=== PATIENT | female | born 1990 | race Caucasian/White ===

== ENCOUNTER 2024-09-14 09:12 | Outpatient (CLI) | payer OTHER | END 2024-09-14 09:20 | disposition home or self-care (01) | LOC: TOM 09:12 | PROVIDERS: ATTEND Obstetrics & Gynecology Reproductive Endocrinology | DX: E28.9 Ovarian dysfunction, unspecified (principal) ==

== ENCOUNTER 2025-06-18 16:27 | Outpatient (CLI) | payer OTHER ==
[~2025-06-18] VITALS: Ht 152.4 cm; Wt 86.2 kg
[2025-06-18 16:56] VITALS: BP 99/64
[2025-06-18] MEDS ORDERED: PRENATA CHEWAB1 EACH PO (17:13)
[2025-06-18 17:36] LABS: BASO % 0.1 % (0.1-1.2); EOS # 0.13 (0.04-0.54); EOS % 1.4 % (0.7-7.0); LYMPH # 1.56 (1.18-3.74); LYMPH % 17.1 % (19.3-53.1); MEAN PLATELET VOLUME 11.90 fl (9.4-12.4); MONO # 0.57 (0.24-0.82); MONO % 6.2 % (4.7-12.5); NEUT # 6.82 (1.56-6.13); NEUT % 74.8 % (34.0-71.1); RED CELL DISTRIBUTION WIDTH 13.0 % (11.6-14.4)
[2025-06-18 17:50] LABS: INR < 0.93
[2025-06-18 17:55] LABS: ALT/SGPT 61.0 U/L (12-78); AST/SGOT 39.0 U/L (15-37); BILIRUBIN TOTAL 0.6 mg/dL (0.3-1.2); BUN CREA RATIO 20.0 (7.0-25.0); CREATININE SERUM 0.51 mg/dL (0.55-1.02); GFR 138.04; GLOBULINA 3.6 G/DL (2.4-3.5); GLUCOSE FASTING 75.0 mg/dL (65-100); OSMOLALITY SERUM 275.0 MOSM/KG (275-295)
[2025-06-18] MEDS ORDERED: RINGERS SOLUTION,LACTATED 1,000 ML IV SCH (18:00)
[2025-06-18 19:27] VITALS: BP 91/57
[2025-06-18] MEDS ORDERED: PNV,CALCIUM 72/IRON/FOLIC ACID 1 TAB TABLET PO SCH (21:00)
[2025-06-18 23:11] VITALS: BP 96/58
[2025-06-19 03:38] VITALS: BP 95/58
[2025-06-19] MEDS ORDERED: LEVOTHYROXINE SODIUM 125 MCG TABLET PO SCH (06:00)
[2025-06-19 06:08] VITALS: BP 90/50; O2SAT 98
[2025-06-19] MEDS ORDERED: PNV,CALCIUM 72/IRON/FOLIC ACID 1 TAB TABLET PO SCH (09:00)
[2025-06-19 12:44] VITALS: BP 100/60
== END 2025-06-19 12:49 | disposition home or self-care (01) ==
LOC: OBS/DEL 16:27
PROVIDERS: ATTEND Obstetrics & Gynecology Gynecology
DX: O26.893 Other specified pregnancy related conditions, third trimester (principal); O26.843 Uterine size-date discrepancy, third trimester; O36.8130 Decreased fetal movements, third trimester, not applicable or unspecified; O36.5930 Maternal care for other known or suspected poor fetal growth, third trimester, not applicable or unspecified; Z3A.36 36 weeks gestation of pregnancy

== ENCOUNTER 2025-06-26 13:00 | Inpatient (IN) | payer OTHER ==
[~2025-06-26] VITALS: Ht 152.4 cm; Wt 86.2 kg
[~2025-06-26 13:00] MED LIST: PRENATA CHEWAB1 EACH PO
[2025-06-26 15:30] VITALS: BP 101/58
[2025-06-26] MEDS ORDERED: MISOPROSTOL 25 MCG TABLET VAG PRN (15:45)
[2025-06-26 15:56] LABS: BASO % 0.1 % (0.1-1.2); EOS # 0.12 (0.04-0.54); EOS % 1.4 % (0.7-7.0); LYMPH # 1.53 (1.18-3.74); LYMPH % 18.0 % (19.3-53.1); MEAN PLATELET VOLUME 12.20 fl (9.4-12.4); MONO # 0.57 (0.24-0.82); MONO % 6.7 % (4.7-12.5); NEUT # 6.21 (1.56-6.13); NEUT % 73.2 % (34.0-71.1); RED CELL DISTRIBUTION WIDTH 13.0 % (11.6-14.4); URINE APPEARANCE Cloudy; URINE BILIRRUBIN Negative (NEGATIVE); URINE BLOOD Negative; URINE COLOR Yellow; URINE GLUCOSE Negative (NEGATIVE); URINE KETONE Negative (NEGATIVE); URINE LEUKOCYTE Negative; URINE NITRATE Negative; URINE PROTEIN Negative (NEGATIVE); URINE UROBILINOGEN 0.2 E.U./dl
[2025-06-26 15:57] LABS: URINE EPITHELIAL CELLS 110.8 uL (0.0-38.8); URINE RBC 3.5 uL (0.0-20.8); URINE WBC 33.1 uL (0.0-23.2)
[2025-06-26] MEDS ORDERED: LEVOTHYROXINE25 MCG PO (16:00)
[2025-06-26] MEDS ORDERED: MAGNESIUM200 MG PO (16:01)
[2025-06-26 16:06] LABS: URINE CAST 0.00 uL (0.0-1.40)
[2025-06-26 16:32] LABS: INR < 0.93
[2025-06-26 16:51] LABS: ALT/SGPT 57.0 U/L (12-78); AST/SGOT 29.0 U/L (15-37); BILIRUBIN TOTAL 0.42 mg/dL (0.3-1.2); BUN CREA RATIO 24.0 (7.0-25.0); CREATININE SERUM 0.58 mg/dL (0.55-1.02); GFR 119.0; GLOBULINA 3.2 G/DL (2.4-3.5); GLUCOSE FASTING 97.0 mg/dL (65-100); OSMOLALITY SERUM 282.0 MOSM/KG (275-295)
[2025-06-26] MEDS ORDERED: MORPHINE SULFATE 4 MG/ML VIAL IV SCH (17:00)
[2025-06-26 18:54] VITALS: BP 112/64
[2025-06-26] MEDS ORDERED: MISOPROSTOL 25 MCG TABLET ONE (19:18)
[2025-06-26] MEDS ORDERED: MORPHINE SULFATE 4 MG/ML VIAL IV PRN (23:20)
[2025-06-26 23:31] VITALS: BP 100/64
[2025-06-27] VITALS (8 sets, daily range): BP systolic 94–118; BP diastolic 57–71
[2025-06-27] MEDS ORDERED: LEVOTHYROXINE SODIUM 25 MCG TABLET PO SCH (06:00)
[2025-06-27] MEDS ORDERED: OXYTOCIN 500 ML IV ONE (07:30)
[2025-06-27] MEDS ORDERED: ERYTHROMYCIN BASE OPHT 1GM EACH TUBE OP ONE (18:21)
[2025-06-27] MEDS ORDERED: CHLORHEXIDINE GLUCONATE 120 ML BOTTLE TOP ONE (18:21)
[2025-06-27] MEDS ORDERED: OXYTOCIN 20 UNITS/1000ML RL PIGGYBAG IV ONE (18:21)
[2025-06-27] MEDS ORDERED: LIDOCAINE HCL 1% 10ML VIAL ONE (18:21)
[2025-06-27] MEDS ORDERED: OXYTOCIN 1,000 ML IV ONE (21:30)
[2025-06-27] MEDS ORDERED: CHLORHEXIDINE GLUCONATE 120 ML BOTTLE TP SCH (21:30)
[2025-06-28 01:20] VITALS: BP 116/76
[2025-06-28 02:06] LABS: BASO % 0.2 % (0.1-1.2); EOS # 0.03 (0.04-0.54); EOS % 0.1 % (0.7-7.0); LYMPH # 1.12 (1.18-3.74); LYMPH % 4.2 % (19.3-53.1); MEAN PLATELET VOLUME 12.40 fl (9.4-12.4); MONO # 0.76 (0.24-0.82); MONO % 2.8 % (4.7-12.5); NEUT # 24.75 (1.56-6.13); NEUT % 92.1 % (34.0-71.1); RED CELL DISTRIBUTION WIDTH 13.1 % (11.6-14.4)
[2025-06-28 08:00] VITALS: BP 101/69
[2025-06-28] MEDS ORDERED: DOCUSATE SODIUM 100MG CAP PO SCH (09:00)
[2025-06-28] MEDS ORDERED: PNV,CALCIUM 72/IRON/FOLIC ACID 1 TAB TABLET PO SCH (09:00)
[2025-06-28 16:00] VITALS: BP 107/69
[2025-06-29] VITALS: BP 112/65
== END 2025-06-29 11:23 | disposition home or self-care (01) | DRG 807 ==
LOC: OB/GYN 13:00 → LDR 13:57 → OB/GYN 06-28 01:21
PROVIDERS: Obstetrics & Gynecology Gynecology; ADMIT Obstetrics & Gynecology Maternal & Fetal Medicine; ATTEND Obstetrics & Gynecology Maternal & Fetal Medicine
PROC: 3E0P7VZ Introduction of Hormone into Female Reproductive, Via Natural or Artificial Opening (ICD-10-PCS; 2025-06-26)
PROC: 4A1HXCZ Monitoring of Products of Conception, Cardiac Rate, External Approach (ICD-10-PCS; 2025-06-26)
PROC: 10E0XZZ Delivery of Products of Conception, External Approach (ICD-10-PCS; principal; 2025-06-27)
PROC: 0UQG7ZZ Repair Vagina, Via Natural or Artificial Opening (ICD-10-PCS; 2025-06-27)
PROC: 3E033VJ Introduction of Other Hormone into Peripheral Vein, Percutaneous Approach (ICD-10-PCS; 2025-06-27)
DX: O71.4 Obstetric high vaginal laceration alone (principal); O69.81X0 Labor and delivery complicated by cord around neck, without compression, not applicable or unspecified; Z37.0 Single live birth; Z3A.38 38 weeks gestation of pregnancy